=== PATIENT | male | born 1980 | race Caucasian/White ===

== ENCOUNTER → 2022-12-16 18:28 | Outpatient (CLI) | payer OTHER, SELFPAY ==
--- NOTE | 2022-12-16 18:30 | DI.MRI.S_ITS ---
PROCEDURE: MR KNEE LT WO CON INDICATIONS: Lt knee injury L I TECHNIQUE: Noncontrast sagittal PD fast spin echo and T2 fast spin echo with fat saturation, sagittal 3-D FLASH with fat saturation; coronal T1 spin echo and PD fast spin echo with fat saturation, and axial PD fast spin echo with fat saturation through the knee. COMPARISON: None. FINDINGS: Image quality: Excellent. Menisci: Oblique tear involving posterior horn of medial meniscus extending to inferior articulating surface. The lateral meniscus is intact. The meniscal root ligaments appear intact. Cruciate ligaments: The anterior cruciate ligament is thickened with intrasubstance T2 hyperintense signal. The posterior cruciate ligament is intact. Medial structures: The medial collateral ligament appears mildly thickened with adjacent soft tissue edema. The posterior oblique ligament, semimembranosus tendon insertions, oblique popliteal ligament, and meniscocapsular junction appear intact. Visualized portions of the pes anserinus tendons appear normal. No abnormal bursal fluid. Lateral structures: The lateral collateral ligament, long and short heads of the biceps femoris tendon appear intact. The popliteus tendon appears normal; the popliteofibular ligament appears intact. Iliotibial band appears normal. Anterior structures: Small amount of fluid along anterior and lateral aspect of patella and patella tendon is seen, measures up to 2.7 x 0.6 x 5.4 cm in size. The quadriceps and patellar tendons appear intact. Patellar alignment is normal. No femoral trochlear dysplasia or ventral trochlear prominence. No edema in the infrapatellar fat pad. Bones and cartilage: No bone marrow contusions or fractures. The cartilage of the medial and lateral femorotibial compartments, as well as the patellofemoral compartment, appears normal in thickness. Joint space: There is small to moderate amount of joint fluid. There is a 3.1 x 2.4 x 4.4 cm Ulloa's cyst. Normal appearing synovial plicae are incidentally noted. IMPRESSION: 1. Oblique tear involving posterior horn of medial meniscus extending to inferior articulating surface. 2. Low-grade MCL sprain. 3. Low-grade ACL sprain. No ACL rupture. The PCL is intact. 4. Small amount of fluid along anterolateral aspect of patella and patella tendon which may indicate fluid within prepatellar bursa and bursitis. Clinical correlation and follow-up is recommended. 5. No marrow edema. No fracture or dislocation. Small to moderate joint effusion and a Ulloa's cyst as above. No gross loose bodies. Dictated by: Jp Petersen M.D. on 12/17/2022 at 9:26 Approved by: Jp Petersen M.D. on 12/17/2022 at 9:33
== END ==
PROVIDERS: PCP Physician Assistant Medical; Referring Provider Physician Assistant Medical; Visit Provider Physician Assistant Medical
DX: S83.242A Other tear of medial meniscus, current injury, left knee, initial encounter (principal); S83.412A Sprain of medial collateral ligament of left knee, initial encounter; S83.512A Sprain of anterior cruciate ligament of left knee, initial encounter; M25.462 Effusion, left knee; M71.22 Synovial cyst of popliteal space [Baker], left knee
CPT/HCPCS: 73721

== ENCOUNTER → 2023-03-19 13:26 | Outpatient (CLI) | payer OTHER, SELFPAY ==
[2023-03-19 19:04] LABS: Add Manual Diff / Slide Review NO; Basophils Absolute Auto 0 /uL (0-100); Basophils Percent Auto 0.6 % (0-2); Eosinophils Absolute Auto 100 /uL (0-450); Hematocrit 46.6 % (41-53); Lymphocytes Absolute Auto 2400 /uL (1100-4500); Lymphocytes Percent Auto 31.9 % (25-40); Mean Corpuscular HGB Conc 34.4 % (30-36); Mean Corpuscular Hemoglobin 28.9 PG (26-34); Mean Corpuscular Volume 84.2 fL (80-100); Monocytes Absolute Auto 500 /uL (0-900); Monocytes Percent Auto 6.2 % (3-14); Neutrophils Absolute Auto 4600 /uL (1500-7000); Neutrophils Percent Auto 60.3 % (50-75); Platelet Count 196 X10^3/uL (150-400); Red Blood Cell Count 5.54 X10^6/uL (4.5-5.9); Red Cell Distribution Width 13.8 % (11.6-14.8); White Blood Cell Count 7.7 X10^3/uL (4.5-11.0)
[2023-03-19 19:13] LABS: Alanine Aminotransferase 40 IU/L (<50); Albumin 4.3 g/dL (3.5-5.0); Albumin Globulin Ratio 1.5 (1.0-2.8); Alkaline Phosphatase 108 U/L (38-126); Aspartate Aminotransferase 25 IU/L (17-59); BUN Creatinine Ratio 16.1 (6-22); Bilirubin Total 0.7 mg/dL (0.2-1.3); Blood Urea Nitrogen 15 mg/dL (9-20); Calcium 9.4 mg/dL (8.4-10.2); Carbon Dioxide 25 mmol/L (22-32); Chloride 104 mmol/L (98-107); Estimated Glomerular Filt Rate > 60 mL/min (>60); Globulin 2.8 g/dL (1.7-4.1); Glucose 108 mg/dL (70-100); HEMOLYSIS 17 (0-50); Potassium 3.8 mmol/L (3.4-5.1); Sodium 140 mmol/L (137-145); Total Protein 7.1 g/dL (6.3-8.2)
== END ==
PROVIDERS: PCP Physician Assistant Medical; Visit Provider Physician Assistant Medical
DX: R12 Heartburn (principal); K29.60 Other gastritis without bleeding; T39.395A Adverse effect of other nonsteroidal anti-inflammatory drugs [NSAID], initial encounter
CPT/HCPCS: 80053; 83013; 85025

== ENCOUNTER → 2023-03-30 09:57 | Outpatient (CLI) | payer OTHER, SELFPAY ==
[2023-04-01 11:30] LABS: Interpretation Negative (Negative)
== END ==
PROVIDERS: PCP Physician Assistant Medical; Visit Provider Physician Assistant Medical
DX: K29.60 Other gastritis without bleeding (principal); T39.395A Adverse effect of other nonsteroidal anti-inflammatory drugs [NSAID], initial encounter; R12 Heartburn
CPT/HCPCS: 83013

== ENCOUNTER 2023-06-06 10:27 | Emergency (ER) | payer OTHER, SELFPAY ==
[2023-06-06 10:42] VITALS: BP 148/108; PULSE 88; RESP 18; TEMP 36.7; O2SAT 98
--- NOTE | 2023-06-06 10:53 | ED.SKABFB ---
HPI - Skin/Abscess/Foreign Bdy General Chief complaint: Skin/Abscess/Foreign Body Stated complaint: infection in knee after surgery Time Seen by Provider: 06/06/23 10:36 History of Present Illness HPI narrative: 42-year-old gentleman who had left knee arthroscopic meniscal surgery on April [address] Morgan. Had been doing well until June 02 when he began having slight increased amount of pain. No redness or warmth. Pain has continued over the last couple of days and yesterday he noticed some purulent material draining from the lower medial incision. There is no surrounding erythema. He does have an effusion but still has full range of motion of the knee. He is able to walk. He has not been complaining of fevers. No inguinal adenopathy. Related Data Previous Rx's Medication Instructions Recorded naproxen 500 mg tablet 500 mg PO BID PRN pain #60 tabs 10/28/22 pantoprazole 20 mg tablet,delayed 20 mg PO BEDTIME #20 tabs 01/29/23 release omeprazole 40 mg capsule,delayed 40 mg PO DAILY #90 caps 03/12/23 release cephalexin 500 mg capsule 500 mg PO TID #30 caps 06/06/23 Allergies Allergy/AdvReac Type Severity Reaction Status Date / Time No Known Drug Allergies Allergy Verified 05/28/23 14:29 Review of Systems Review of Systems Narrative: Pertinent positive and negative findings as per HPI Patient History Medical History (Updated 06/06/23 @ 12:23 by Rosita Collins MD) Vertigo Surgical History (Updated 06/06/23 @ 11:06 by Rosita Collins MD) H/O arthroscopic knee surgery Anesthesia History of lumbar puncture History of back surgery History of thumb surgery Family History (Updated 10/25/22 @ 18:57 by Jailyn Jeffers) Father Hypertension Mother Hypertension Social History Smoking Status: Current every day smoker (1 pack a day) Smoking Status: Current every day smoker (1 pack a day) Exam Initial Vital Signs Initial Vital Signs: Vital Signs Temperature 98.0 F 06/06/23 10:42 Pulse Rate 88 06/06/23 10:42 Respiratory Rate 18 06/06/23 10:42 Blood Pressure 148/108 H 06/06/23 10:42 Pulse Oximetry 98 06/06/23 10:42 Oxygen Delivery Method Room Air 06/06/23 10:42 General: Alert appropriate in no acute distress Respiratory: Able to speak in full sentences, no obvious respiratory distress Skin: No obvious rashes, warm and dry Neurologic: Grossly intact no obvious asymmetries or abnormalities Psych: appropriate insight and affect, cooperative Extremity: Left knee with slight effusion, small amount of purulent drainage is able to be expressed from the lower medial incision. There is no surrounding erythema. He has not complaining of significant pain is able to flex to 60? and extend fully. He has no inguinal adenopathy Course Orders Ordered: ED Orders 06/06/23 11:00 Wound Culture and Gram Stain Stat 06/06/23 11:20 CRP [C-Reactive Protein Quant] Stat Complete Blood Count AUTO DIFF Stat Comprehensive Metabolic Panel Stat Erythrocyte Sedimentation Rate Stat Vital Signs Vital signs: Vital Signs - 8 hr 06/06/23 10:42 Temperature 98.0 F Pulse Rate 88 Respiratory Rate 18 Blood Pressure 148/108 H Pulse Oximetry 98 Oxygen Delivery Method Room Air MDM - Skin/Abscess/Foreign Bdy Lab Data 06/06/23 11:20 06/06/23 11:20 Labs: Lab Results 06/06/23 Range/Units 11:20 WBC 10.9 (4.5-11.0) X10^3/uL RBC 5.59 (4.5-5.9) X10^6/uL Hgb 16.2 (13.5-17.5) g/dL Hct 47.7 (41-53) % MCV 85.2 (80-100) fL MCH 28.9 (26-34) PG MCHC 33.9 (30-36) % RDW 13.6 (11.6-14.8) % Plt Count 214 (150-400) X10^3/uL Neut % (Auto) 65.1 (50-75) % Lymph % (Auto) 28.9 (25-40) % Edmonson % (Auto) 4.8 (3-14) % Eos % (Auto) 0.6 L (2-4) % Baso % (Auto) 0.6 (0-2) % Neut # (Auto) 7100 H (1155-4555) /uL Lymph # (Auto) 3100 (4529-6805) /uL Edmonson # (Auto) 500 (0-900) /uL Eos # (Auto) 100 (0-450) /uL Baso # (Auto) 100 (0-100) /uL ESR 1 (0-15) MM/HR Sodium 140 (137-145) mmol/L Potassium 3.8 (3.4-5.1) mmol/L Chloride 103 (98-107) mmol/L Carbon Dioxide 30 (22-32) mmol/L BUN 14 (9-20) mg/dL Creatinine 0.93 (0.66-1.25) mg/dL Estimated GFR > 60 (>60) mL/min BUN/Creatinine Ratio 15.1 (6-22) Glucose 110 H (70-100) mg/dL Calcium 9.2 (8.4-10.2) mg/dL Total Bilirubin 0.7 (0.2-1.3) mg/dL AST 24 (17-59) IU/L ALT 40 (<50) IU/L Alkaline Phosphatase 120 (38-126) U/L C-Reactive Protein 0.7 (<1.0) mg/dL Total Protein 7.7 (6.3-8.2) g/dL Albumin 4.3 (3.5-5.0) g/dL Globulin 3.4 (1.7-4.1) g/dL Albumin/Globulin Ratio 1.3 (1.0-2.8) MDM Narrative Medical decision making narrative: CC: Left knee infection with purulent drainage, surgery April 27 Complicating co-morbidities: Arthroscopic meniscal surgery April 27 Data collected from: patient Medical records reviewed: Primary care notes are reviewed Differential considered: Prepatellar bursitis, septic joint, superficial cellulitis Exam documented above, pertinent findings include: Knee effusion with purulent drainage without warmth, redness or severe pain Lab Test results independently reviewed as above. Pertinent findings: CBC is unremarkable Chemistries are reassuring Sed rate is low CRP is low Consultations: Dr. Faustin, orthopedics. Recommends a dose of IV antibiotics in the emergency department, oral antibiotics to continue and will see the patient in clinic on Thursday. Given the lack of fever, redness and full range of motion he felt that this was a reasonable plan for time being. Treatments: 2 g of IV ceftriaxone, we will be started on cephalexin. Patient has not requested any pain medications Discussion: Findings reviewed with the patient. He understands the need for IV antibiotics in the emergency department and need for follow up on Thursday with his orthopedic surgeon. He notes that he was already planning to see the surgeon on Thursday. Prescription for Keflex 500 mg 3 times a day is given. Instructions to return with fevers, redness or increasing pain in the left knee. He is safe for discharge home Discharge Plan Departure Patient Disposition: Home Clinical Impression: Infection of knee Instructions: DI for Wound Infection Activity Restrictions/Additional Instructions: Thank you for coming in today The fact that you do have pus coming out of your wound is concerning and you do need antibiotics. You were given ceftriaxone in the emergency department and a prescription for cephalexin to take 3 times a day until instructed by the orthopedic doctor or 10 days or completed The fact that it is not red, warm to the touch and you still have full range of motion is very reassuring that the fluid inside the joint itself likely is not infected. That is of course the big concern. Your blood work was reassuring there is no signs of overwhelming infection or elevated inflammatory markers Please contact Dr. Gutierrez's office on Thursday if they do not call you 1st. Phone number is [phone] If you find that you are getting worse or develop any new symptoms, please feel free to return to the emergency department for further evaluation. Prescriptions: New cephalexin 500 mg capsule 500 mg PO TID Qty: 30 0RF No Action naproxen 500 mg tablet 500 mg PO BID PRN (Reason: pain) Qty: 60 0RF Rx Instructions: Take with food omeprazole 40 mg capsule,delayed release(DR/EC) 40 mg PO DAILY Qty: 90 0RF pantoprazole 20 mg tablet,delayed release (DR/EC) 20 mg PO BEDTIME Qty: 20 0RF Referrals: Estephania Alicea PA-C [Primary Care Provider] - Stand Alone Forms: Patient Portal/API
[2023-06-06 11:31] LABS: Add Manual Diff / Slide Review NO; Basophils Absolute Auto 100 /uL (0-100); Basophils Percent Auto 0.6 % (0-2); Eosinophils Absolute Auto 100 /uL (0-450); Eosinophils Percent Auto 0.6 % (2-4); Hematocrit 47.7 % (41-53); Hemoglobin 16.2 g/dL (13.5-17.5); Lymphocytes Absolute Auto 3100 /uL (1100-4500); Lymphocytes Percent Auto 28.9 % (25-40); Mean Corpuscular HGB Conc 33.9 % (30-36); Mean Corpuscular Hemoglobin 28.9 PG (26-34); Mean Corpuscular Volume 85.2 fL (80-100); Monocytes Absolute Auto 500 /uL (0-900); Monocytes Percent Auto 4.8 % (3-14); Neutrophils Absolute Auto 7100 /uL (1500-7000); Neutrophils Percent Auto 65.1 % (50-75); Platelet Count 214 X10^3/uL (150-400); Red Blood Cell Count 5.59 X10^6/uL (4.5-5.9); Red Cell Distribution Width 13.6 % (11.6-14.8); White Blood Cell Count 10.9 X10^3/uL (4.5-11.0)
[2023-06-06 11:43] LABS: Alanine Aminotransferase 40 IU/L (<50); Albumin 4.3 g/dL (3.5-5.0); Albumin Globulin Ratio 1.3 (1.0-2.8); Alkaline Phosphatase 120 U/L (38-126); Aspartate Aminotransferase 24 IU/L (17-59); BUN Creatinine Ratio 15.1 (6-22); Bilirubin Total 0.7 mg/dL (0.2-1.3); Blood Urea Nitrogen 14 mg/dL (9-20); C-Reactive Protein Quant 0.7 mg/dL (<1.0); Calcium 9.2 mg/dL (8.4-10.2); Carbon Dioxide 30 mmol/L (22-32); Chloride 103 mmol/L (98-107); Estimated Glomerular Filt Rate > 60 mL/min (>60); Globulin 3.4 g/dL (1.7-4.1); Glucose 110 mg/dL (70-100); HEMOLYSIS < 15 (0-50); Potassium 3.8 mmol/L (3.4-5.1); Sodium 140 mmol/L (137-145); Total Protein 7.7 g/dL (6.3-8.2)
[2023-06-06 11:49] LABS: Erythrocyte Sedimentation Rate 1 MM/HR (0-15)
[2023-06-06] MEDS: cefTRIAXone 2,000 MG in SODIUM CHLORIDE 0.9% 100 ML 200 MG IV (12:30)
[2023-06-06 13:13] VITALS: BP 145/89; PULSE 80; RESP 18; O2SAT 99
== END 2023-06-06 13:14 | disposition home or self-care (01) ==
PROVIDERS: Emergency Provider Emergency Medicine; PCP Physician Assistant Medical
DX: T81.40XA Infection following a procedure, unspecified, initial encounter (principal)
CPT/HCPCS: 36415; 80053; 85025; 85651; 86140; 87070; 87205; 96365; 99284; J0696